=== PATIENT | male | born 1975 | race Caucasian/White ===

== ENCOUNTER 2019-10-25 12:29 | Inpatient (IN) | payer OTHER, SELFPAY ==
--- NOTE | ~2019-10-25 | XR_ITS ---
EXAMINATION: XR pelvis 1-2V, XR femur LT min 2V EXAM DATE: 10/25/2019 13:27 INDICATION: Fall, pelvic pain. Initial encounter. TECHNIQUE: Left femur frontal and lateral projections of the proximal aspect, frontal and lateral pro jections of the lower aspect for review. Frontal projection pelvis. FINDINGS: There is acute left intertrochanteric fracture with about 12 mm displacement, mild lacing string cutter ior medial angulation. Closed, posttraumatic fracture . No other femoral or pelvic fractures. IMPRESSION: Acute left hip intertrochanteric fracture, mild angulation and distraction. Reviewed, dictated and finalized at location A. ULAR TECHNICIAN IMPRESSION: Acute left hip intertrochanteric fracture, mild angulation and dis traction.
--- NOTE | ~2019-10-25 | XR_ITS ---
EXAMINATION: XR chest 1V portable DATE: 10/25/2019 19:45 INDICATION: Fracture for preoperative evaluation with leukocytosis. TECHNIQUE: frontal view of the chest was obtained. COMPARISON: Chest radiograph dated 09/29/2006 FINDINGS: The lungs remain clear with no focal airspace opacities, pulmonary edema, pleural effusion or pneumot horax. The cardiomediastinal silhouette is normal. Visualized bones and soft tissues are unremarkable . IMPRESSION: 1. Normal chest radiograph. Reviewed, dictated and finalized at location A. GE CARPENTER IMPRESSION: 1. Normal chest radiograph.
--- NOTE | ~2019-10-25 | CT_ITS ---
EXAMINATION: CT pelvis wo con DATE: 10/28/2019 08:47 INDICATION: Pelvic pain. Left hip fracture. TECHNIQUE: Computed tomography (CT) of the pelvis was performed without intravenous contrast. Automat ed exposure control and iterative reconstruction technique were employed. The dose-length product was 441.55 mGy-cm. COMPARISON: CT abdomen and pelvis 04/14/2015, pelvis radiographs 10/25/2019, 10/26/2019 FINDINGS: There are no dilated loops of bowel. There are no pathologically enlarged lymph nodes. Ther e is no free intraperitoneal fluid. There is a comminuted intertrochanteric fracture of proximal left femur. The main distal fracture fragment demonstrates 2 mm lateral displacement and 5 mm distraction . Internal fixation is seen with antegrade intramedullary marilynn and femoral head/neck screw. There is m ild osteoarthritis of the hips. There is mild lumbar spondylosis. There is gas in the soft tissues, c onsistent with recent surgery. Lateral skin chalino are noted. There is hematoma in the subcutaneous fat lateral to the left hip. IMPRESSION: 1. Comminuted intertrochanteric fracture of proximal left femur with interval improvement in alignmen t status post open reduction internal fixation. 2. Mild osteoarthritis of the hips. Reviewed, dictated and finalized at location A. AGE WRAPPER IMPRESSION: 1. Comminuted intertrochanteric fracture of proximal left femur with interval i mprovement in alignment status post open reduction internal fixation. 2. Mild osteoarthritis of the hips.
--- NOTE | ~2019-10-25 | XR_ITS ---
EXAMINATION: XR surgery orthopedic DATE: 10/26/2019 10:04 INDICATION: Left femoral intertrochanteric nailing TECHNIQUE: 4 fluoroscopic spot images of the left hip and proximal femur were obtained during procedu re performed by Dr. Lazo. Radiologist was not present for the imaging or procedure. The amount of fluoroscopy time used during this procedure was 4.4 minutes. COMPARISON: 10/25/2019 FINDINGS: Interval antegrade intramedullary marilynn with distal interlocking and multiple neck dynamic compression screw fixation of an intratrochanteric fracture of the proximal left femur. Alignment appears near-an atomic. Normal alignment and joint space at the left hip. No other fractures identified. Expected sma ll amount of postoperative gas in the soft tissues. IMPRESSION: 1. Near-anatomic alignment post internal fixation of an intratrochanteric fracture of the proximal le ft femur. Reviewed, dictated and finalized at location A. AL ARTIST IMPRESSION: 1. Near-anatomic alignment post internal fixation of an intratrochanteric fract ure of the proximal left femur.
--- NOTE | ~2019-10-25 | XR_ITS ---
EXAMINATION: XR hip LT 2V w AP pelvis DATE: 10/29/2019 12:48 INDICATION: [place] pop at the left hip during therapy session TECHNIQUE: Anteroposterior view of the pelvis and anteroposterior and cross-table lateral views of th e left hip were obtained. COMPARISON: CT dated 10/28/2019 and fluoroscopic images dated 10/26/2019 FINDINGS: Again seen is a mildly comminuted intertrochanteric fracture at the proximal left femur with antegrad e intramedullary marilynn with dynamic hip screw and distal interlocking screw fixation. Alignment remains near-anatomic with unchanged 8 mm wide lucent fracture gap extending obliquely along the anterior as pect of the greater trochanter. No evident instrumentation failure or migration with no surrounding l ucency to suggest loosening. No new fractures identified. Bilateral hip and sacral iliac joint spaces are normal. Expected small amount of residual gas in the subcutaneous tissues underlying multiple sk in chalino. IMPRESSION: 1. Unchanged internally fixed comminuted intertrochanteric fracture of the proximal left femur which remains in near anatomic alignment. No new osseous abnormality. Reviewed, dictated and finalized at location A. SUPPORT CONSULTANT IMPRESSION: 1. Unchanged internally fixed comminuted intertrochanteric fracture of the prox imal left femur which remains in near anatomic alignment. No new osseous abnorm ality.
[2019-10-25 12:41] VITALS: BP 131/67; PULSE 63; RESP 14; TEMP 36.7; O2SAT 100
--- NOTE | 2019-10-25 12:44 | ED.LOWEXIN ---
HPI - Extremity Injury (Lower) General Chief Complaint: Extremity Injury, Lower Stated Complaint: FALL/L HIP PAIN Time Seen by Provider: 10/25/19 12:44 Source: patient and RN notes reviewed Mode of arrival: EMS Limitations: no limitations History of Present Illness HPI Narrative: A 44 y/o male presents to the ED via EMS with severe, throbbing, 10/10, lt hip pain beginning roughly 30 minutes ago after he had a ground level fall. He states that he was chasing his daughter outside of his mother's house, when he slipped on the asphalt and landed on his lt hip. He reports immediate, severe, lt hip pain and that he was unable to get up or bare weight on his own so he called EMS to be brought here. He denies any HI, LOC, BELLA, CP, SOB, neck pain, back pain, and any other medical complaints at this time. complaint: hip injury Onset (ago): minute(s) (30) Injury: Left: hip Type of Injury: blunt Place: other (mother's home) Severity: severe Severity scale (1-10): 10 Exacerbating factors: weight bearing and movement Context: fall Associated symptoms: unable to bear weight Other symptoms: none Related Data Home Medications Medication Instructions Recorded Confirmed No Home Medications 10/25/19 10/25/19 Allergies Allergy/AdvReac Type Severity Reaction Status Date / Time No Known Allergies Allergy Mild Unverified 10/21/15 10:51 Review of Systems Constitutional: Constitutional: Denies chills, Denies fever(s), Denies headache(s) and Denies weakness Eyes: Eyes: Denies blurry vision ENT: Denies headache(s) and Denies neck pain Cardiovascular: Cardiovascular: Denies chest pain and Denies dyspnea Respiratory: Respiratory: Denies cough and Denies dyspnea Gastrointestinal: Gastrointestinal: Denies abdominal pain, Denies diarrhea, Denies nausea and Denies vomiting Genitourinary: Genitourinary: Denies hematuria and Denies dysuria Musculoskeletal: Musculoskeletal: Denies back pain, Denies neck pain and Reports other (severe 10/10 lt hip pain) Neurologic: Denies headache(s), Denies weakness and Denies other (HI or LOC) [facility] Past Medical History Medical History (Updated 10/25/19 @ 16:29 by Briana Espinoza MD) Healthy female Surgical History Surgical History (Updated 10/25/19 @ 13:31 by Logan Garner) No history of previous surgery Social History Social History (Updated 10/25/19 @ 13:31 by Logan Garner) Smoking packs per day: 1 Smoking cigarettes per day: 20.0 Smoking status: Current every day smoker Gender identity (if verbalized by the patient): Male Comments PCP: REBECCA Banks. Exam Const: General: no acute distress and well developed Orientation/consciousness: oriented to person, oriented to place, oriented to time and patient oriented x3 HENMT: Head: normocephalic Ears: external ears normal General nose exam: Normal external nose present Eyes: General: appearance normal, both eyes and all related structures Conjunctivae: conjunctivae normal Neck: Neck: normal visual inspection and full ROM Chest: Chest palpation & inspection: normal inspection of the chest and no tenderness Resp: Effort & Inspection: normal respiratory effort Auscultation: clear to auscultation bilaterally Cardio: Rate: regular rate Rhythm: regular rhythm GI: GI Palp: No abdominal tenderness and Yes Soft to palpation Skin: General skin exam: normal color and turgor normal Neuro: General: oriented to person, oriented to place, oriented to time and patient oriented x3 Cognition (Neuro): normal cognition Extrem: General: no pedal edema Right upper extremity: full ROM Left upper extremity: full ROM Right lower extremity: full ROM Left lower extremity: hip/thigh Details: tenderness Location: of the proximal upper leg and swelling Location: of the proximal upper leg Psych: Appearance: grossly normal Mental Status: mental status grossly normal Affect: normal affect Course Consultations Consultation #1: Discussed case w
[2019-10-25 15:40] LABS: Basophils Percent Auto 0.3 % (0.2-1.2); Eosinophils Percent Auto 0.2 % (0-4.4); Hematocrit 42.6 % (42.0-52.0); Hemoglobin 14.2 g/dL (14.0-18.0); Immature Granulocyte Absolute 0.08 K/mm3 (0.00-0.031); Immature Granulocyte Percent A 0.6 % (0-0.5); Lymphocytes Absolute Auto 0.66 K/mm3 (0.9-3.2); Mean Corpuscular HGB Conc 33.3 g/dl (32-36); Mean Corpuscular Hemoglobin 31.6 pg (26-34); Mean Corpuscular Volume 94.7 fl (80-100); Mean Platelet Volume 8.7 fl (7.4-10.4); Monocytes Absolute Auto 0.7 K/mm3 (0.1-0.6); Monocytes Percent Auto 5.5 % (2.6-8.5); Neutrophils Absolute Auto 11.6 K/mm3 (1.3-6.7); Neutrophils Percent Auto 88.4 % (45.5-73.1); Platelet Count Result 311 k/mm3 (150-375); Red Cell Distribution Width 12.9 % (11.5-14.5); White Blood Count 13.1 K/mm3 (4.5-10.0)
[2019-10-25 15:46] LABS: INR 0.9; Prothrombin Time 12.3 Seconds (11.1-14.7)
[2019-10-25 15:47] LABS: Partial Thromboplastin Time 27.3 SECONDS (22.3-36.8)
[2019-10-25 15:52] VITALS: BP 118/69; PULSE 80; RESP 12; O2SAT 100
[2019-10-25 15:52] LABS: Blood Urea Nitrogen 15 mg/dL (9-20); Calcium 9.4 mg/dL (8.4-10.2); Carbon Dioxide 25 mmol/L (22-30); Chloride 100 mmol/L (98-107); Estimated CRCL calculation 117 ml/min; Estimated Glomerular Filt Rate > 60; Glucose 97 mg/dL (75-110); Potassium 4.4 mmol/L (3.4-5.0); Sodium 137 mmol/L (137-145)
[2019-10-25 16:20] VITALS: BP 100/44; PULSE 82; RESP 18; TEMP 36.9; O2SAT 100
[2019-10-25] MEDS: MORPHINE SULFATE 4 MG/ML INJ IV PUSH ×2 (16:33→21:09)
[2019-10-25 16:39] VITALS: BMI 24.9
--- NOTE | 2019-10-25 16:56 | ADMGEN ---
This patient, Val Cisneros, was admitted to [facility] Surg Room 312-01. Patient/family oriented to hospital policies and general routines including ID bracelet, bed and alarms, visiting hours, pain management, procedures, bathroom and other care routines, personal items, smoking policy, room service/diet, and visiting hours. Valuables list has been completed. Information on how to activate the Rapid Response Team has been discussed. Patient/Family are encouraged to report perceived risks to care and to ask questions if they do not understand what they are told or what they should do.
[2019-10-25] MEDS: DIAZEPAM 5 MG TABLET PO (18:17)
--- NOTE | 2019-10-25 18:45 | PM.IMHP ---
H&P: HPI History of Present Illness Chief complaint: Left hip pain after a fall. <Liz Summers PA-C - Last Filed: 10/25/19 19:14> Narrative: Val Cisneros is a 44 year old male reporting no significant medical history who presented to the emergency department earlier this afternoon via EMS from home for evaluation of left hip pain after fall. Just prior to arrival, he dove on the ground to catch his 1-1/2-year-old daughter who was running and appeared to be tripping. He was able to save his daughter from harm, however landed very hard on his left leg, with immediate excruciating pain in the left hip. He was unable to get himself up or bear weight on the left leg due to pain and he was found to have a left hip fracture. At the time my evaluation, he rates his pain 8/10 and has a hard time describing it other than severe pain. He had some mild tingling of the left toes but that has since improved. He denies current paresthesias, skin color, and temperature changes distal to the fracture site. Other than a skin tear on his left elbow, he sustained no other injuries. There was no head trauma or loss of consciousness. <Liz Summers PA-C - Last Filed: 10/25/19 19:14> Review of Systems Review of Systems: Narrative: Twelve systems were reviewed with pertinent positives and negatives as per HPI. No fever, chills, or sweats. He had a cold 2 weeks ago, all symptoms have resolved. No history of cardiac or pulmonary disease. No exertional chest pain or shortness of breath. He denies nausea and vomiting. No history of venous thromboembolism. Except as documented, all other systems were reviewed and are negative. <Liz Summers PA-C - Last Filed: 10/25/19 19:14> [facility] Past Medical History Medical History: Medical History H/O ETOH abuse History of drug abuse in remission History of smoking Leukocytosis Sciatica <Liz Summers PA-C - Last Filed: 10/25/19 19:14> Surgical History Surgical History: Surgical History No history of previous surgery <iLz Summers PA-C - Last Filed: 10/25/19 19:14> Family History Family History: Family History Grandparent Bone cancer Cerebrovascular accident <Liz Summers PA-C - Last Filed: 10/25/19 19:14> Social History Social History: Social History (Updated 10/25/19 @ 19:11 by Liz Summers PA-C) Social History: The patient lives in [place] with his girlfriend. He has 7 biologic children, and mainly is a [id number] father. He works part-time [employer]. He designates his significant other, Marva García, as his surrogate decision maker and he wishes to be a full code. He smoked about a pack of cigarettes per day for nearly 30 years and quit several years ago. He does use chewing tobacco on occasion. He drinks between 12 and 18 beers a week. Prior history of marijuana use, but no illicit drug use recently. Smoking packs per day: 1 Smoking cigarettes per day: 20.0 Years smoked: 30 Smoking pack-years: 30.00 Smoking status: Former smoker Tobacco type: cigarettes Smokeless tobacco user: chewing tobacco Second hand tobacco smoke exposure: Yes Smoking end date: 08/18/17 Alcohol intake: current Drinks per week: 12 Substance use: former Substance use type: marijuana Last use: as a teenager Gender identity (if verbalized by the patient): Male Spiritual care concerns: No Agree to blood products: Yes <Liz Summers PA-C - Last Filed: 10/25/19 19:14> Meds Home Medications and Allergies Home medications: Home Medications Medication Instructions Recorded Confirmed Type No Home Medications 10/25/19 10/25/19 History <Liz Summers PA-C - Last Filed: 10/25/19 19:14> Allergies/Adverse reactio
[2019-10-25] MEDS: CELECOXIB 200 MG CAPSULE PO (19:03)
[2019-10-25 20:00] VITALS: BP 115/72; PULSE 86
--- NOTE | 2019-10-25 20:04 | WPDANESEPP ---
Anes - Eval Pre Procedure Procedure: Left hip Gamma Nail Date/Time: 10/25/19 20:04 Surgeon: Lyly Preop Diagnosis: Closed displaced intertrochanteric fracture of left femur Pre Op Diagnosis: Left hip pain after a fall. Patient Data Age: 44 Gender: M Height: 6 ft 2 in Weight: 88 kg Last Vital Signs Temp 98.5 F 10/25/19 16:20 Pulse 82 10/25/19 16:20 Resp 18 10/25/19 16:20 BP 100/44 L 10/25/19 16:20 Pulse Ox 100 10/25/19 16:20 Allergies Allergy/AdvReac Type Severity Reaction Status Date / Time No Known Allergies Allergy Mild Unverified 10/21/15 10:51 Home Medications Medication Instructions Recorded Confirmed Type No Home Medications 10/25/19 10/25/19 History Laboratory Tests 10/25/19 10/25/19 10/25/19 15:25 15:25 15:25 WBC 13.1 K/mm3 H K/mm3 (4.5-10.0) RBC 4.50 M/mm3 L M/mm3 (4.6-6.20) Hgb 14.2 g/dL g/dL (14.0-18.0) Hct 42.6 % % (42.0-52.0) MCV 94.7 fl fl (80-100) MCH 31.6 pg pg (26-34) MCHC 33.3 g/dl g/dl (32-36) RDW 12.9 % % (11.5-14.5) Plt Count 311 k/mm3 k/mm3 (150-375) MPV 8.7 fl fl (7.4-10.4) Immature Gran % (Auto) 0.6 % H % (0-0.5) Neut % (Auto) 88.4 % H % (45.5-73.1) Lymph % (Auto) 5.0 % L % (18.3-44.2) [place]y % (Auto) 5.5 % % (2.6-8.5) Eos % (Auto) 0.2 % % (0-4.4) Baso % (Auto) 0.3 % % (0.2-1.2) Lymph # (Auto) 0.66 K/mm3 L K/mm3 (0.9-3.2) [place]y # (Auto) 0.7 K/mm3 H K/mm3 (0.1-0.6) Eos # (Auto) 0.0 K/mm3 K/mm3 (0-0.3) Baso # (Auto) 0.0 K/mm3 K/mm3 (0.0-0.1) Abs Immat Gran (auto) 0.08 K/mm3 H K/mm3 (0.00-0.031) Absolute Neuts (auto) 11.6 K/mm3 H K/mm3 (1.3-6.7) Absolute Nucleated RBC 0.0 K/mm3 K/mm3 (0.0-0.012) Nucleated RBC % 0.0 % % (0.0-0.2) PT 12.3 Seconds Seconds (11.1-14.7) INR 0.9 APTT 27.3 SECONDS SECONDS (22.3-36.8) Sodium 137 mmol/L mmol/L (137-145) Potassium 4.4 mmol/L mmol/L (3.4-5.0) Chloride 100 mmol/L mmol/L (98-107) Carbon Dioxide 25 mmol/L mmol/L (22-30) BUN 15 mg/dL mg/dL (9-20) Creatinine 0.80 mg/dL mg/dL (0.7-1.3) Estim Creat Clear Calc 117 ml/min ml/min Estimated GFR > 60 (59 - ) Glucose 97 mg/dL mg/dL (75-110) Calcium 9.4 mg/dL mg/dL (8.4-10.2) Patient hx anesthesia problems: none Family hx anesthesia problems: none [facility] Past Medical History Medical History H/O ETOH abuse History of drug abuse in remission History of smoking Leukocytosis Sciatica Surgical History Surgical History No history of previous surgery Family History Family History Grandparent Bone cancer Cerebrovascular accident Social History Social History (Updated 10/25/19 @ 19:11 by Liz Summers PA-C) Social History: The patient lives in [place] with his girlfriend. He has 7 biologic children, and mainly is a [id number] father. He works part-time [employer]. He designates his significant other, Marva García, as his surrogate decision maker and he wishes to be a full code. He smoked about a pack of cigarettes per day for nearly 30 years and quit several years ago. He does use chewing tobacco on occasion. He drinks between 12 and 18 beers a week. Prior history of marijuana use, but no illicit drug use recently. Smoking packs per day: 1 Smoking cigarettes per day: 20.0 Years smoked: 30 Smoking pack-years: 30.00 Smoking status: Former smoker Tobacco type: cigarettes Smokeless tobacco user: chewing tobacco Second hand tobacco smoke exposure: Yes
[2019-10-25 22:00] VITALS: BP 115/72; PULSE 88; RESP 16; TEMP 37.1; O2SAT 99
[2019-10-26] VITALS (15 sets, daily range): BP systolic 117–146; BP diastolic 64–85; PULSE 63–86; RESP 15–19; TEMP 36.3–37.3; O2SAT 92–100
[2019-10-26] MEDS: MORPHINE SULFATE 4 MG/ML INJ IV PUSH ×2 (03:35→05:38)
[2019-10-26 06:48] LABS: Alanine Aminotransferase 21 U/L (4-50); Albumin Level 3.8 g/dL (3.5-5.1); Alkaline Phosphatase 74 U/L (38-126); Aspartate Amino Transferase 22 U/L (17-59); Bilirubin,Total 0.5 mg/dL (0.2-1.3); Blood Urea Nitrogen 14 mg/dL (9-20); Calcium 8.8 mg/dL (8.4-10.2); Carbon Dioxide 25 mmol/L (22-30); Chloride 100 mmol/L (98-107); Estimated CRCL calculation 132 ml/min; Estimated Glomerular Filt Rate > 60; Glucose 101 mg/dL (75-110); Sodium 135 mmol/L (137-145)
--- NOTE | 2019-10-26 07:50 | P.PNAN_ITS ---
Anes - Eval Final PreProcedure Day of Procedure 10/26/19 07:50 Patient weight: normal Heart: regular rate and rhythm Lungs: clear to auscultation and normal air movement Airway: Mallampati scale class II Neurological: alert and oriented Last oral intake: >/= 8 hours ASA classification: III Emergent: no Anesthetic plan: proceed Anesthesia type and monitoring: general LMA Informed Consent: The patient's anesthetic plan and its attendant risks and b enefits were discussed with the patient/family/POA. Questions were solicited and answers provided to the satisfaction of the patient/family/POA.
--- NOTE | 2019-10-26 08:13 | PC.NURSE ---
Pt to surgery per bed. IV 18 LAC saline locked.
[2019-10-26] MEDS: ceFAZolin 2 GM/D5W 50 ML 2 GM/50 ML BAG IVPB ×2 (08:46→17:20)
--- NOTE | 2019-10-26 10:14 | PM.OP ---
Procedure Note - Brief Procedure Note - Brief Date of procedure: 10/26/19 Pre-op diagnosis: Left hip pain after a fall. LEFT IT FRACTURE Post-op diagnosis: same Procedure performed: LEFT HIP GAMMA KERRIE INSERTION Anesthesia: GETA Surgeon: Jean Lzao MD Estimated blood loss (mL): 200 Complications: No immediate complications Condition: stable Disposition: PACU
--- NOTE | 2019-10-26 11:18 | PM.PROC ---
Procedure Note - Detailed Date of procedure: 10/26/19 Pre-op diagnosis: Left hip pain after a fall. LEFT HIP INTERTROCHANTERIC FEMUR FRACTURE Post-op diagnosis: same Procedure performed: INSERTION IM KERRIE LEFT HIP Description of procedure: THE LEFT LOWER EXTREMITY WAS PREPPED AND DRAPED AFTER CLOSED REDUCTION ON FRACTURE TABLE. INCISION WAS MADE OVER THE PROXIMAL GREATER TROCHNATERIC REGION. A GUIDE PIN WAS PLACED THROUGH THE GREATER TROCH AND IN TO THE FEMORAL SHAFT. I REAMER WAS USED OVER THE GUIDE PIN. A [employer] GAMMA KERRIE WAS PLACED OVER THE GUIDE PIN. A LAG SCREW WAS PLACED THROUGH THE FEMORAL NECK JUST SHY TO THE SUBCHONDRAL BONE. A LOCKING SCREW WAS PLACED IN THE DIDTAL KERRIE LOCKKING IT TO THE BONE. THE FRACTURE AND HARDWARE WERE IN GOOD POSITION. THE WOUNDS WERE CLOSED IN LAYERS WITH 1 AND 2-0 VICRYL THEN GEORGIE FOR THE SKIN. DRESSSING WAS APPLIED. PATIENT WAS SENT TO REC ROOM IN STABLE CONDITION Anesthesia: GETA Surgeon: Jean Lazo MD Estimated blood loss (mL): 200 Drains: No Packing: No Pathology: none sent Complications: No immediate complications Condition: stable Disposition: PACU
--- NOTE | 2019-10-26 11:47 | PC.NURSE ---
Pt returned from post op @ 8161.
--- NOTE | 2019-10-26 11:58 | SUR.PHASEI ---
1125; UNABLE TO CHART IVF IN NOV. PT HAD 100ML OF LACTATED RINGERS LEFT TO COUNT WHEN IV WAS SALINE LOCKED. TOTAL OF 1900ML OF LR IN SURGERY TODAY. IVAN LORA ON [employer]/SURG NOTIFIED.
[2019-10-26] MEDS: KCL 20 MEQ/D5/0.45% SOD CHL 1,000 ML 80 ML IV CONT (12:09)
--- NOTE | 2019-10-26 12:11 | CONS_ITS ---
DATE OF CONSULTATION: 10/26/2019 HISTORY OF PRESENT ILLNESS: This is a 44-year-old male who fell while trying to catch his daughter, injuring his left hip. He came to the emergency department at [facility] and was diagnosed with an intertrochanteric femur fracture of the left femur. He denies any other pain in other extremities. Denies any neck pain, back pain, or any other lower extremity pain aside from the left hip. Denies any loss of consciousness. PAST MEDICAL HISTORY: Sciatica. MEDICATIONS: None. ALLERGIES: NONE. SURGICAL HISTORY: None. SOCIAL HISTORY: Smokes one-pack of cigarettes per day. He also chews tobacco. Takes alcohol approximately 12 drinks per week. Uses marijuana. REVIEW OF SYSTEMS: Denies any chest pain, shortness of breath, any headache, back ache, diarrhea, nausea, or vomiting. Complains only of left hip pain. PHYSICAL EXAMINATION: The left hip was examined. He has some swelling to the left thigh. He has tenderness over the proximal femur. He has severe pain with passive internal and external rotation of left hip. He has no thigh masses. The knee is nontender with no swelling. There is no effusion. Tib-fib, foot and ankle are nontender. No sign of trauma. He is able to dorsi and plantar flex the left foot with 5/5 strength. Dorsalis pedis pulse 2+, posterior tib pulse 2+. The right hip was examined. He has no pain with passive motion. He has no tenderness to the thigh. He has no thigh masses. The knee is nontender. He has full range of motion of the knee and no instability. He has no tenderness in tib-fib, foot, and ankles. He is able to dorsi and plantar flex the right foot without any difficulty. He has dorsalis pedis pulse 2+, posterior tib pulse 2+. Upper extremity examination, he elevates both upper extremities without any difficulty. He has no tenderness in the clavicle, shoulders, arms, elbows, forearms, wrists and hands. The neck is nontender. Thoracic spine and lumbar spine are nontender. Sacroiliac region is nontender. Coccyx is nontender. IMAGING: X-ray evaluation shows left intertrochanteric femur fracture. RECOMMENDATION: Recommendations are for insertion of left hip gamma marilynn. I discussed the complications with him and his mother and we discussed infection. We discussed nonunion or malunion. We also discussed DVT and PE. He realized he will be on anticoagulation for 4 weeks. He will be on an altered weightbearing regimen for at least 6 weeks depending on fracture fixation and stability. He also realizes that due to possibility of infection, he may have to undergo further surgery such as irrigation and debridement and removal of hardware. He understands this and would like to proceed. CHANO PEÑA M.D. TANK PUMPER TANK PUMPER D Brandon MT: Syed
[2019-10-26] MEDS: THIAMINE HCL 100 MG TABLET PO (12:12)
[2019-10-26] MEDS: FOLIC ACID 1 MG TABLET PO (12:12)
--- NOTE | 2019-10-26 13:31 | OP_ITS ---
DATE OF PROCEDURE: 10/26/2019 PREOPERATIVE DIAGNOSIS: Left intertrochanteric femur fracture. POSTOPERATIVE DIAGNOSIS: Left intertrochanteric femur fracture. PROCEDURE: Insertion of intramedullary hip marilynn, left femur. ANESTHESIA: None. COMPLICATIONS: None. INDICATIONS: This is a 44-year-old male, who fell and injuring his right hip. He had pain and swelling. He went to the emergency department, was diagnosed with a left intertrochanteric femur fracture. He was admitted to the hospital. Orthopedics was consulted. He was indicated for insertion of hip marilynn, left hip. DESCRIPTION OF PROCEDURE: The patient was taken to the operating room in stable condition and placed in supine position. General anesthesia induced and then he was placed on the fracture table, and with gentle traction and internal rotation, the intertrochanteric femur fracture reduced to near-anatomic position. Once that was performed, then the left lower extremity was prepped and draped sterilely from the toes to the iliac crest. Incision was made just proximal to the greater trochanter down to the subcutaneous tissues and down through the fascia. The tip of the greater trochanter was identified. A guide pin under fluoroscopy was placed through the greater trochanter and then passed the fracture fragments in the proximal femoral shaft. This was checked on the AP and lateral films. Next, starter reamer was placed and the reamer was placed for the guide pin and the proximal femur was reamed. Next, a short gamma marilynn by [employer] measuring 130 degrees by 11 x 180 degrees length was inserted into the femoral shaft. This was done under direct fluoroscopy visualization, was found to be in good position. A guide pin was placed through the marilynn and into the femoral neck just shy of the subchondral bone of the femoral head. This was reamed to 105, and then 105 lag screw was placed until there was an excellent bite just shy of the subchondral bone. Once that was performed, a distal locking screw was placed. This was also done under fluoroscopy and was found to be in good position. X-rays were taken and found the fracture fragments of the hardware were in good position. The wounds were washed copiously and then the fascial layers were approximated with #1 Vicryl, subcutaneous tissue with 2-0 Vicryl and the skin was approximated with chalino. Wound was washed, placed sterile dressing. The patient was then taken off the fracture table. He was extubated and sent to recovery. D I MT: Syed
--- NOTE | 2019-10-26 14:20 | PM.IMPN ---
Progress Note: A&P Assessment and Plan (1) Closed displaced intertrochanteric fracture of left femur: Qualifiers: Encounter type: initial encounter Qualified Code(s): S72.142A - Displaced intertrochanteric fracture of left femur, initial encounter for closed fracture Code(s): S72.142A - Displaced intertrochanteric fracture of left femur, initial encounter for closed fracture Status: Acute Assessment and Plan: The pt presented to [facility] via EMS due to a ground level fall when he slipped trying to catch his daughter. There was no LOC. There was no head trauma. He has no other c/o pain with the exception of his hip. X-ray evaluation in the ED revealed closed, displaced intertrochanteric fracture of the left femur occurred. He was admitted to the hospitalist service. He is s/p left intramedullary hip rosa elena insertion by Dr. Lazo this morning. Motor and sensation are intact to the left foot. He has 2+ DP and PT pulses bilaterally. His foot is warm with good color. 2 Left hip dressings are c/d/i. There is some soft-tissue swelling at the lateral aspect of the hip suspicious for hematoma. I discussed this finding with Dr. Lazo. His diet was advanced post-op and he is tolerating PO intake well. Urinary pattern is normal. No flatus or BM yet. -Analgesics per orthopedic surgery -Stressed the importance of Q2HR IS to prevent post-op pneumonia -Neurovascular checks, call Dr. Lazo with acute change -Wound care per Dr. Lazo -Ancef IV pre- and post-op per Dr. Lazo -Activity and PT/OT per Dr. Lazo (2) Leukocytosis: Code(s): D72.829 - Elevated white blood cell count, unspecified Status: Acute Assessment and Plan: Labs at initial presentation to the ED revealed mild leukocytosis with left shift with white blood cell count of 13.1 with 88.4% neurophils, 0.6% immaure granulocytes, and 5% lymphocytes. There is no hx to suggest infection. I suspect that leukocytosis is likely due to an acute stress reaction. -Repeat CBC tomorrow -Consider further work-up for lymphopenia outpatient if it persists after resolution of acute stress reaction. (3) H/O ETOH abuse: Code(s): F10.11 - Alcohol abuse, in remission Status: Acute Assessment and Plan: The pt admits to 12-18 beers per week. So far, CIWA score is 0. -Perform CIWA-Ar Q4 while awake for 72 hr -Pt is on PRN diazepam for spasms per ortho. -Will add chlordiazepoxide 25mg q 6HR PRN CIWA score >10 -Folic acid and thiamine dietary supplements Subjective Date/time seen: 10/26/19 14:20 Interval history: Mr. Cisneros was seen and examined at bedside s/p left intramedullary hip rosa elena insertion by Dr. Lazo this morning due to left closed, displaced intertrochanteric femur fracture. The fracture resulted from a ground level fall when he was trying to catch his granddaughter from falling. He reports that is pain is controlled on his current regimen. He does c/o soft tissue swelling at the operative site that is tender to touch. His dressings are c/d/i. Motor function and sensation are intact to the left toes. He just finished lunch and denies nause, vomiting, and bloating. He reports no flauts yet. He reports regular urinary pattern. He has a superficial skin tear on his left arm from the fall without surrounding erythema or swelling. Review of Systems Review of Systems: All systems reviewed & are unremarkable except as noted in HPI and below Constitutional: Constitutional: Denies chills, Denies fatigue, Denies fever(s), Denies poor appetite and Denies weakness Eyes: Eyes: Denies change in vision ENT: Reports Normal hearing present Cardiovascular: Cardiovascular: Denies chest pain, Denies rapid heart rate and Denies dyspnea Respiratory: Respiratory: Denies cough, Denies dyspnea and Denies wheezing Gastrointestinal: Gastrointestinal: Denies abdominal pain, Denies bloating, Denies constipation, Den
[2019-10-26] MEDS: CELECOXIB 200 MG CAPSULE PO (17:19)
[2019-10-26] MEDS: MORPHINE SULFATE 4 MG/ML INJ 3 MG IV PUSH (17:19)
[2019-10-26] MEDS: DIAZEPAM 5 MG TABLET PO (19:50)
[2019-10-27] VITALS (7 sets, daily range): BP systolic 105–125; BP diastolic 52–72; PULSE 62–80; RESP 16–18; TEMP 36.6–36.8; O2SAT 97–100
[2019-10-27] MEDS: ceFAZolin 2 GM/D5W 50 ML 2 GM/50 ML BAG IVPB ×2 (01:06→09:56)
[2019-10-27] MEDS: DIAZEPAM 5 MG TABLET PO ×2 (06:14→20:17)
[2019-10-27 06:32] LABS: Basophils Percent Auto 0.1 % (0.2-1.2); Eosinophils Absolute Auto 0.1 K/mm3 (0-0.3); Eosinophils Percent Auto 1.2 % (0-4.4); Hematocrit 33.4 % (42.0-52.0); Hemoglobin 10.9 g/dL (14.0-18.0); Immature Granulocyte Absolute 0.03 K/mm3 (0.00-0.031); Immature Granulocyte Percent A 0.4 % (0-0.5); Lymphocytes Absolute Auto 1.23 K/mm3 (0.9-3.2); Lymphocytes Percent Auto 17.9 % (18.3-44.2); Mean Corpuscular HGB Conc 32.6 g/dl (32-36); Mean Corpuscular Hemoglobin 31.1 pg (26-34); Mean Corpuscular Volume 95.4 fl (80-100); Mean Platelet Volume 9.2 fl (7.4-10.4); Monocytes Percent Auto 15.1 % (2.6-8.5); Neutrophils Absolute Auto 4.5 K/mm3 (1.3-6.7); Neutrophils Percent Auto 65.3 % (45.5-73.1); Platelet Count Result 254 k/mm3 (150-375); White Blood Count 6.9 K/mm3 (4.5-10.0)
[2019-10-27 06:48] LABS: Blood Urea Nitrogen 10 mg/dL (9-20); Calcium 8.6 mg/dL (8.4-10.2); Carbon Dioxide 26 mmol/L (22-30); Chloride 100 mmol/L (98-107); Estimated CRCL calculation 152 ml/min; Estimated Glomerular Filt Rate > 60; Glucose 110 mg/dL (75-110); Potassium 3.7 mmol/L (3.4-5.0); Sodium 136 mmol/L (137-145)
[2019-10-27] MEDS: FOLIC ACID 1 MG TABLET PO (10:00)
[2019-10-27] MEDS: CELECOXIB 200 MG CAPSULE PO (10:00)
[2019-10-27] MEDS: THIAMINE HCL 100 MG TABLET PO (10:00)
[2019-10-27] MEDS: ASPIRIN 325 MG ENTERIC TABLET 650 MG PO (10:00)
--- NOTE | 2019-10-27 13:29 | PM.PNORT ---
Progress Note: A&P Additional Plan POD 1 DOING WELL. CONT PT Time Spent With Patient Time with patient: 15 - 25 minutes Subjective Subjective Date/Time Seen: 10/27/19 13:29POD 1 DOING WELL. PAIN CONTROLLED. 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 SIGN CALF SOFT NON TENDER Objective Data Vital Signs Vital Signs: Vital Signs - 24 hr 10/26/19 16:20 10/26/19 17:10 10/26/19 20:00 Temperature 36.7 C Pulse Rate 66 Pulse Rate [Right Radial Palpation] 72 Respiratory Rate 19 Blood Pressure 136/71 132/75 Pulse Oximetry 92 100 10/26/19 21:43 10/27/19 00:00 10/27/19 02:06 Temperature 37.3 C 36.7 C Pulse Rate 86 62 Pulse Rate [Right Radial Palpation] 72 Respiratory Rate 16 16 Blood Pressure 132/75 105/52 L Pulse Oximetry 98 97 10/27/19 04:00 10/27/19 06:00 10/27/19 10:00 Temperature 36.7 C 36.8 C Pulse Rate 69 80 Pulse Rate [Right Radial Palpation] 74 Respiratory Rate 18 18 Blood Pressure 125/72 117/66 Pulse Oximetry 98 100 Intake/Output Intake/Output: Intake & Output 10/24/19 10/25/19 10/26/19 10/27/19 23:59 23:59 23:59 23:59 Intake Total 300 2320 680 Output Total 0 2525 250 Balance 300 -205 430 Meds/Results Medications: Active Medications Generic Name Dose Route Start Last Admin Trade Name Freq PRN Reason Stop Dose Admin Acetaminophen 650 mg 10/26/19 10:15 Tylenol Tablet PO Q6H PRN Mild Pain (1-3) or Fever Hydrocodone Bitart/Acetaminophen 1 tab 10/26/19 10:15 10/27/19 07:26 [place] 7.5-325 Mg PO 1 tab Q3H PRN Administration Pain Rated 4-6 Aspirin 650 mg 10/27/19 09:00 10/27/19 10:00 Aspirin Ec PO 650 mg DAILY [facility] Administration Celecoxib 200 mg 10/27/19 08:00 10/27/19 10:00 Celebrex PO 200 mg DAILY@0800 [facility] Administration Chlordiazepoxide HCl 25 mg 10/26/19 17:28 Librium Po PO Q6H PRN CIWA> 10 Diazepam 5 mg 10/25/19 17:23 10/26/19 19:50 Valium Po PO 5 mg BID PRN Administration Anxiety Diazepam 5 mg 10/26/19 10:20 10/27/19 06:14 Valium Po PO 5 mg Q8H PRN Administration Muscle Spasm Fentanyl Citrate 25 mcg 10/26/19 07:51 10/26/19 11:07 Sublimaze IV PUSH 25 mcg Q2M PRN Administration Pain Folic Acid 1 mg 10/26/19 09:00 10/27/19 10:00 Folic Acid PO 1 mg DAILY [facility] Administration Hydromorphone HCl 0.25 mg 10/26/19 07:51 Dilaudid Inj IV PUSH Q5M PRN Pain Ibuprofen 800 mg in 200 mls @ 400 mls/hr 10/26/19 10:15 Caldolor 800 Mg/200 Ml IVPB Q6H PRN Pain Rated 4-6 Morphine Sulfate 3 mg 10/26/19 10:15 10/26/19 17:19 Morphine Sulfate Inj IV PUSH 3 mg Q3H PRN Administration Pain Rated 7-10 Naloxone HCl 0.1 mg 10/26/19 10:15 Narcan IV PUSH Q2M PRN Opiate Reversal Ondansetron HCl 4 mg 10/26/19 07:51 Zofran Inj IV PUSH ONCE PRN Nausea Ondansetron HCl 4 mg 10/26/19 10:15 Zofran Inj IV PUSH Q4H PRN Nausea And Vomiting Oxycodone/Acetaminophen 2 tablet 10/26/19 10:15 10/27/19 10:56 Percocet 5-325 Mg PO 2 tablet Q4H PRN Administration Breakthrough Pain Thiamine HCl 100 mg 10/26/19 09:00 10/27/19 10:00 Vitamin B-1 PO 100 mg QAM [facility] Administration Radiology Results: ITS Impressions Femur X-Ray 10/25/19 13:40 IMPRESSION: Acute left hip intertrochanteric fracture, mild angulation and distraction. Pelvis X-Ray 10/25/19 13:40 IMPRESSION: Acute left hip intertrochanteric fracture, mild angulation and distraction. Chest X-Ray 10/25/19 21:48 IMPRESSION: 1. Normal chest radiograph. Intraoperative X-Ray 10/26/19 15:39 IMPRESSION: 1. Near-anatomic alignment post internal fixation of an intratrochanteric fracture of the proximal left femur. Labs Labs: Laboratory Results - last 24 hr 10/27/19 10/27/19 05:50 05:50 WBC 6.9 RBC
--- NOTE | 2019-10-27 14:13 | WPDANESPN ---
Anes - Prog Note Post-Op Date/Time: 10/27/19 14:13 Cardiovascular status: normal Respiratory status: normal Airway patency: baseline Mental status: baseline Post-Op hydration status: normal Vital Signs: Last Vital Signs Temp 98.3 F 10/27/19 10:00 Pulse 80 10/27/19 10:00 Resp 18 10/27/19 10:00 BP 117/66 10/27/19 10:00 Pulse Ox 100 10/27/19 10:00 I/O: Intake & Output 10/26/19 10/27/19 10/27/19 23:59 07:59 15:59 Intake Total 970 630 50 Output Total 950 250 Balance 20 380 50 Laboratory Tests 10/27/19 05:50 10/27/19 05:50 10/27/19 10/27/19 05:50 05:50 WBC 6.9 RBC 3.50 L Hgb 10.9 L D Hct 33.4 L MCV 95.4 MCH 31.1 MCHC 32.6 RDW 13.0 Plt Count 254 MPV 9.2 Immature Gran % (Auto) 0.4 Neut % (Auto) 65.3 Lymph % (Auto) 17.9 L [place] % (Auto) 15.1 H Eos % (Auto) 1.2 Baso % (Auto) 0.1 L Lymph # (Auto) 1.23 [place] # (Auto) 1.0 H Eos # (Auto) 0.1 Baso # (Auto) 0.0 Abs Immat Gran (auto) 0.03 Absolute Neuts (auto) 4.5 Absolute Nucleated RBC 0.0 Nucleated RBC % 0.0 Sodium 136 L Potassium 3.7 Chloride 100 Carbon Dioxide 26 BUN 10 Creatinine 0.60 L Estim Creat Clear Calc 152 Estimated GFR > 60 Glucose 110 Calcium 8.6 Post-procedural complaints: none Patient Feedback: Patient satisfied with anesthetic care.
--- NOTE | 2019-10-27 16:29 | PM.IMPN ---
Progress Note: A&P Assessment and Plan (1) Closed displaced intertrochanteric fracture of left femur: Qualifiers: Encounter type: initial encounter Qualified Code(s): S72.142A - Displaced intertrochanteric fracture of left femur, initial encounter for closed fracture <Genesis Beasley PA-C - Last Filed: 10/27/19 17:23> Code(s): S72.142A - Displaced intertrochanteric fracture of left femur, initial encounter for closed fracture <Genesis Beasley PA-C - Last Filed: 10/27/19 17:23> Status: Acute <Genesis Beasley PA-C - Last Filed: 10/27/19 17:23> Assessment and Plan: The pt presented to [facility] via EMS due to a ground level fall when he slipped trying to catch his daughter. There was no LOC. There was no head trauma. X-ray evaluation in the ED revealed closed, displaced intertrochanteric fracture of the left femur occurred. He was admitted to the hospitalist service. He is s/p left intramedullary hip rosa elena insertion by Dr. Lazo yesterday. Motor and sensation are intact to the left foot. He has 2+ DP and PT pulses bilaterally. His foot is warm with good color. 2 Left hip dressings are c/d/i. He has soft swelling at the left hip. He is passing flatus and tolerating PO intake well. He complains of significant left hip pain when he raises the right leg. -Will perform pelvic CT to r/o occult pelvic fracture -Analgesics per orthopedic surgery -Stressed the importance of Q2HR IS to prevent post-op pneumonia -Neurovascular checks, call Dr. Lazo with acute change -Wound care per Dr. Lazo -Ancef IV pre- and post-op per Dr. Lazo -Activity and PT/OT per Dr. Lazo <Genesis Beasley PA-C - Last Filed: 10/27/19 17:23> (2) Leukocytosis: Code(s): D72.829 - Elevated white blood cell count, unspecified <Genesis Beasley PA-C - Last Filed: 10/27/19 17:23> Status: Acute <NOMAN Angelo Last Filed: 10/27/19 17:23> Assessment and Plan: Labs at initial presentation to the ED revealed mild leukocytosis with left shift with white blood cell count of 13.1 with 88.4% neurophils, 0.6% immaure granulocytes, and 5% lymphocytes. There is no hx to suggest infection. Repeat CBC today reveals WBC 6.9. Neutrophils are no longer elevated and he has lymphocytosis, likely due to stress reaction from surgery. -Repeat CBC tomorrow <Genesis Beasley PA-C - Last Filed: 10/27/19 17:23> (3) H/O ETOH abuse: Code(s): F10.11 - Alcohol abuse, in remission <NOMAN Angelo Last Filed: 10/27/19 17:23> Status: Acute <NOMAN Angelo Last Filed: 10/27/19 17:23> Assessment and Plan: The pt admits to 12-18 beers per week. CIWA scores are 0 today. -Perform CIWA-Ar Q4 while awake for 72 hr -Pt is on PRN diazepam for spasms per ortho. -Will add chlordiazepoxide 25mg q 6HR PRN CIWA score >10 -Folic acid and thiamine dietary supplements <NOMAN Angelo Last Filed: 10/27/19 17:23> Subjective Date/time seen: 10/27/19 16:29 <NOMAN Angelo Last Filed: 10/27/19 17:23> Interval history: Mr. Cisneros is seen and examined while he ambulating with PT. He continues to c/o left hip pain as well as left hip pain with the right leg raised approximately 20 degrees. While ambulating, he keeps the right leg internally rotated. He is tolerating PO intake well. He reports flatus. He denies chest pain, calf pain, SOB, and cough. He reports that he is using IS. He denies fever and chills. He denies nausea and vomiting. He reports sensation to his left foot seems to be improving. <NOMAN Angelo Last Filed: 10/27/19 17:23> Review of Systems Review of Systems: All systems reviewed & are unremarkable except as noted in HPI and below <Genesis Beasley PA-C - Last Filed: 10/27/19 17:23> Exam Const: General: cooperative, healthy appearing, comfo
[2019-10-28] VITALS: BP 103/59; PULSE 76
[2019-10-28 02:00] VITALS: BP 103/59; PULSE 66; RESP 18; TEMP 36.4; O2SAT 99
[2019-10-28 04:00] VITALS: BP 103/59; PULSE 76
[2019-10-28 06:00] VITALS: BP 108/57; PULSE 71; RESP 18; TEMP 36.8; O2SAT 99
[2019-10-28 06:18] LABS: Basophils Percent Auto 0.4 % (0.2-1.2); Eosinophils Absolute Auto 0.2 K/mm3 (0-0.3); Eosinophils Percent Auto 2.2 % (0-4.4); Hemoglobin 11.2 g/dL (14.0-18.0); Immature Granulocyte Absolute 0.05 K/mm3 (0.00-0.031); Immature Granulocyte Percent A 0.7 % (0-0.5); Lymphocytes Absolute Auto 1.44 K/mm3 (0.9-3.2); Lymphocytes Percent Auto 21.5 % (18.3-44.2); Mean Corpuscular HGB Conc 32.9 g/dl (32-36); Mean Corpuscular Hemoglobin 31.5 pg (26-34); Mean Corpuscular Volume 95.8 fl (80-100); Mean Platelet Volume 8.8 fl (7.4-10.4); Monocytes Absolute Auto 0.9 K/mm3 (0.1-0.6); Monocytes Percent Auto 13.1 % (2.6-8.5); Neutrophils Absolute Auto 4.2 K/mm3 (1.3-6.7); Neutrophils Percent Auto 62.1 % (45.5-73.1); Platelet Count Result 264 k/mm3 (150-375); Red Blood Count 3.55 M/mm3 (4.6-6.20); Red Cell Distribution Width 12.9 % (11.5-14.5); White Blood Count 6.7 K/mm3 (4.5-10.0)
[2019-10-28] MEDS: THIAMINE HCL 100 MG TABLET PO (08:01)
[2019-10-28] MEDS: CELECOXIB 200 MG CAPSULE PO (08:02)
[2019-10-28] MEDS: FOLIC ACID 1 MG TABLET PO (08:02)
[2019-10-28] MEDS: ASPIRIN 325 MG ENTERIC TABLET 650 MG PO (08:02)
[2019-10-28] MEDS: DIAZEPAM 5 MG TABLET PO (08:05)
[2019-10-28 15:03] VITALS: BP 134/64; PULSE 90; RESP 18; TEMP 36.4; O2SAT 100
--- NOTE | 2019-10-28 18:48 | PM.IMPN ---
Progress Note: A&P Assessment and Plan (1) Closed displaced intertrochanteric fracture of left femur: Qualifiers: Encounter type: initial encounter Qualified Code(s): S72.142A - Displaced intertrochanteric fracture of left femur, initial encounter for closed fracture Code(s): S72.142A - Displaced intertrochanteric fracture of left femur, initial encounter for closed fracture Status: Acute Assessment and Plan: The pt had a ground level fall when he slipped trying to catch his daughter resulting in a left closed, displaced IT femur fracture. He is s/p left intramedullary hip marilynn insertion by Dr. Lazo 10/26/19. Still having pelvic pain so Pelvic CT ordered but did not reveal any other fractures. Continue PT/OT. Possibly home tomorrow. (2) Leukocytosis: Code(s): D72.829 - Elevated white blood cell count, unspecified Status: Acute Assessment and Plan: WBC 13.1 on admission felt realted to the stress. Repeat WBC normal (3) H/O ETOH abuse: Code(s): F10.11 - Alcohol abuse, in remission Status: Acute Assessment and Plan: The pt admits to 12-18 beers per week. No evidence of withdrawal symptoms. Continue Folic acid and thiamine dietary supplements. Diazepam available for spasm and Librium for withdrawal sx. Subjective Date/time seen: 10/28/19 18:48 Interval history: 44yo male here for left femur fracture s/p repair 10/26/19. He has been up walking in the room with therapy. Having increasing pain. No CP or SOB. No n/v. Fels dizzy at times. Therapy states patient having dificult with ambulation and felt not a safe discharge today. Exam Narrative: Exam Narrative: Gen - NARD Chest - CTA bilat, nml RR CV - RRR S1/S2 Abd - soft, NT/ND, +BS Ext - left hip dressing clean, dry and intact, 2+ DP bilaterally Neuro - normal senation to the left foot Psych - nml mood and affect Objective Data Vital Signs Vital Signs: Vital Signs - 24 hr 10/27/19 20:00 10/27/19 22:00 10/28/19 00:00 Temperature 97.8 F Pulse Rate 66 78 Pulse Rate [Right Radial Palpation] 76 76 Respiratory Rate 18 18 Blood Pressure 106/66 120/56 L 103/59 L Pulse Oximetry 99 99 10/28/19 02:00 10/28/19 04:00 10/28/19 06:00 Temperature 97.6 F 98.3 F Pulse Rate 66 71 Pulse Rate [Right Radial Palpation] 76 Respiratory Rate 18 18 Blood Pressure 103/59 L 103/59 L 108/57 L Pulse Oximetry 99 99 10/28/19 15:03 Temperature 97.5 F L Pulse Rate 90 Pulse Rate [Right Radial Palpation] Respiratory Rate 18 Blood Pressure 134/64 Pulse Oximetry 100 Intake/Output Intake/Output: Intake & Output 10/25/19 10/26/19 10/27/19 10/28/19 23:59 23:59 23:59 23:59 Intake Total 300 2320 1100 1970 Output Total 0 2525 1901 1525 Balance 938 -065 -711 588 Meds/Results Medications: Active Medications Generic Name Dose Route Start Last Admin Trade Name Freq PRN Reason Stop Dose Admin Acetaminophen 650 mg 10/26/19 10:15 Tylenol Tablet PO Q6H PRN Mild Pain (1-3) or Fever Hydrocodone Bitart/Acetaminophen 1 tab 10/26/19 10:15 10/28/19 18:29 [place] 7.5-325 Mg PO 1 tab Q3H PRN Administration Pain Rated 4-6 Aspirin 650 mg 10/27/19 09:00 10/28/19 08:02 Aspirin Ec PO 650 mg DAILY [facility] Administration Celecoxib 200 mg 10/27/19 08:00 10/28/19 08:02 Celebrex PO 200 mg DAILY@0800 [facility] Administration Chlordiazepoxide HCl 25 mg 10/26/19 17:28 Librium Po PO Q6H PRN CIWA> 10 Diazepam 5 mg 10/25/19 17:23 10/27/19 20:17 Valium Po PO 5 mg BID PRN Administration Anxiety Diazepam 5 mg 10/26/19 10:20 10/28/19 08:05 Valium Po PO 5 mg Q8H PRN Administration Muscle Spasm Fentanyl Citrate 25 mcg 10/26/19 07:51 10/26/19 11:07 Sublimaze IV PUSH 25 mcg Q2M PRN Administration Pain Folic Acid 1 mg 10/26/19 09:00 10/28/19 08:02 Folic Acid PO 1 mg DAILY [facility] Adm
[2019-10-28 22:00] VITALS: BP 131/62; PULSE 73; RESP 16; TEMP 36.9; O2SAT 100
[2019-10-29 06:00] VITALS: BP 103/53; PULSE 66; RESP 18; TEMP 36.8; O2SAT 96
[2019-10-29] MEDS: ASPIRIN 325 MG ENTERIC TABLET 650 MG PO (08:56)
[2019-10-29] MEDS: THIAMINE HCL 100 MG TABLET PO (08:56)
[2019-10-29] MEDS: FOLIC ACID 1 MG TABLET PO (08:56)
[2019-10-29] MEDS: CELECOXIB 200 MG CAPSULE PO (08:56)
--- NOTE | 2019-10-29 12:18 | PC.NURSE ---
No return call from Dr Violet Hopper I contacted office and Dr Lazo stated that he had received the message left earlier by Norma Mosquera that patient felt left hip pop during therapy session. Orders received.
[2019-10-29 14:00] VITALS: BP 124/70; PULSE 90; RESP 16; TEMP 36.9; O2SAT 97
--- NOTE | 2019-10-29 14:30 | PM.IMPN ---
Progress Note: A&P Assessment and Plan (1) Closed displaced intertrochanteric fracture of left femur: Qualifiers: Encounter type: initial encounter Qualified Code(s): S72.142A - Displaced intertrochanteric fracture of left femur, initial encounter for closed fracture Code(s): S72.142A - Displaced intertrochanteric fracture of left femur, initial encounter for closed fracture Status: Acute Assessment and Plan: Result of a ground level fall. Imaging with comminuted intertrochanteric fracture of proximal left femur. Orthopedics consulted and appreciate help. Now S/P repair by Dr. Lazo on 10/26/2019. [place] pop with therapy today with repeat imaging showing no change. Continue PT/OT. Patient did speak with billing customer service representative from SNF today. Patient preference is to go home. He now does have arrangements in place for appropriate help with his care at home. Anticipate discharge tomorrow. (2) Leukocytosis: Qualifiers: Leukocytosis type: unspecified Qualified Code(s): D72.829 - Elevated white blood cell count, unspecified Code(s): D72.829 - Elevated white blood cell count, unspecified Status: Acute Assessment and Plan: Holden to be reactive. WBC now normal at 6.7 on last check. (3) H/O ETOH abuse: Code(s): F10.11 - Alcohol abuse, in remission Status: Acute Assessment and Plan: He admits to 12-18 beers per week. Currently stable. no evidence of withdrawal symptoms. Continue Folic acid and thiamine dietary supplements. Librium available as needed but has not used to date. Will monitor. (4) DVT prophylaxis: Code(s): Z29.9 - Encounter for prophylactic measures, unspecified Status: Acute Assessment and Plan: SCDs. Time Spent With Patient Time with patient: 15 - 25 minutes Subjective Date/time seen: 10/29/19 14:30 Interval history: Date of Service: 10/29/2019. Admitted with left femur fracture. Patient reports pain controlled left leg. No chest pain or shortness of breath. No abdominal pain. No headache or dizziness. Review of Systems Constitutional: Constitutional: Denies chills and Denies fever(s) ENT: Denies nasal congestion and Denies nasal discharge Cardiovascular: Cardiovascular: Denies chest pain Respiratory: Respiratory: Denies dyspnea Gastrointestinal: Gastrointestinal: Denies abdominal pain, Denies nausea and Denies vomiting Genitourinary: Genitourinary: Reports no additional male genitourinary complaints Musculoskeletal: Comments: Pain left leg/hip tolerable Integumentary/Breasts: Skin/Breast: Denies rash Neurologic: Denies headache(s) and Denies numbness Psychiatric: Psychiatric: Denies anxiety, Denies confusion and Denies depression Exam Narrative: Exam Narrative: Awake and alert. Const: General: no acute distress HENMT: Mouth: Yes moist mucous membranes Neck: Neck: supple Lymphatic: lymphadenopathy not noted Resp: Auscultation: clear to auscultation bilaterally, no rales and no wheezes Cardio: Rate: regular rate Rhythm: regular rhythm GI: Inspection: non-distended GI Palp: Yes Soft to palpation and No Tenderness to palpation present (GI) Auscultation: normal bowel sounds Skin: General skin exam: no erythema Neuro: Cognition (Neuro): normal cognition Speech: normal speech Extrem: General: no edema Left lower extremity: hip/thigh (Surgical bandage in place with no surrounding erythema or drainage) Psych: Mental Status: mental status grossly normal Affect: normal affect Objective Data Vital Signs Vital Signs: Vital Signs - 24 hr 10/28/19 15:03 10/28/19 22:00 10/29/19 06:00 Temperature 97.5 F L 98.4 F 98.3 F Pulse Rate 90 73 66 Respiratory Rate 18 16 18 Blood Pressure 134/64 131/62 103/53 L Pulse Oximetry 100 100 96 Intake/Output Intake/Output: Intake & Output 10/26/19 10/27/19 10/28/19 10/29/19 23:59 23:59 23:59 23:59 Intake Total 2320 1100 1970 1320
--- NOTE | 2019-10-29 15:57 | PM.PNORT ---
Progress Note: A&P Additional Plan POD 3 IMPROVING. CONTINUE PT. HE SHOULD BE DISCHARGED SOON. LIKE MAYBE [facility] Time Spent With Patient Time with patient: 15 - 25 minutes Subjective Subjective Date/Time Seen: 10/29/19 15POD 3 DOING WELL. PAIN CONTROL IS DIFFICULT FOR HIM. HE HAD NEW XRAYS WHICH SHOWED NO CHANGE IN FRACTURE. 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 SIGN Objective Data Vital Signs Vital Signs: Vital Signs - 24 hr 10/28/19 22:00 10/29/19 06:00 Temperature 36.9 C 36.8 C Pulse Rate 73 66 Respiratory Rate 16 18 Blood Pressure 131/62 103/53 L Pulse Oximetry 100 96 Intake/Output Intake/Output: Intake & Output 10/26/19 10/27/19 10/28/19 10/29/19 23:59 23:59 23:59 23:59 Intake Total 2320 1100 1970 1320 Output Total 2525 1901 1525 1500 Balance -205 801 445 -180 Meds/Results Medications: Active Medications Generic Name Dose Route Start Last Admin Trade Name Freq PRN Reason Stop Dose Admin Acetaminophen 650 mg 10/26/19 10:15 Tylenol Tablet PO Q6H PRN Mild Pain (1-3) or Fever Hydrocodone Bitart/Acetaminophen 1 tab 10/26/19 10:15 10/29/19 08:57 [place] 7.5-325 Mg PO 1 tab Q3H PRN Administration Pain Rated 4-6 Aspirin 650 mg 10/27/19 09:00 10/29/19 08:56 Aspirin Ec PO 650 mg DAILY HECTOR Administration Celecoxib 200 mg 10/27/19 08:00 10/29/19 08:56 Celebrex PO 200 mg DAILY@0800 HECTOR Administration Chlordiazepoxide HCl 25 mg 10/26/19 17:28 Librium Po PO Q6H PRN CIWA> 10 Diazepam 5 mg 10/25/19 17:23 10/27/19 20:17 Valium Po PO 5 mg BID PRN Administration Anxiety Diazepam 5 mg 10/26/19 10:20 10/28/19 08:05 Valium Po PO 5 mg Q8H PRN Administration Muscle Spasm Fentanyl Citrate 25 mcg 10/26/19 07:51 10/26/19 11:07 Sublimaze IV PUSH 25 mcg Q2M PRN Administration Pain Folic Acid 1 mg 02/08/20 09:00 10/29/19 08:56 Folic Acid PO 1 mg DAILY HECTOR Administration Hydromorphone HCl 0.25 mg 10/26/19 07:51 Dilaudid Inj IV PUSH Q5M PRN Pain Ibuprofen 800 mg in 200 mls @ 400 mls/hr 10/26/19 10:15 Caldolor 800 Mg/200 Ml IVPB Q6H PRN Pain Rated 4-6 Morphine Sulfate 3 mg 10/26/19 10:15 10/26/19 17:19 Morphine Sulfate Inj IV PUSH 3 mg Q3H PRN Administration Pain Rated 7-10 Naloxone HCl 0.1 mg 10/26/19 10:15 Narcan IV PUSH Q2M PRN Opiate Reversal Ondansetron HCl 4 mg 10/26/19 07:51 Zofran Inj IV PUSH ONCE PRN Nausea Ondansetron HCl 4 mg 10/26/19 10:15 Zofran Inj IV PUSH Q4H PRN Nausea And Vomiting Oxycodone/Acetaminophen 2 tablet 10/26/19 10:15 10/28/19 04:31 Percocet 5-325 Mg PO 2 tablet Q4H PRN Administration Breakthrough Pain Thiamine HCl 100 mg 10/26/19 09:00 10/29/19 08:56 Vitamin B-1 PO 100 mg QAM HECTOR Administration Radiology Results: ITS Impressions Femur X-Ray 10/25/19 13:40 IMPRESSION: Acute left hip intertrochanteric fracture, mild angulation and distraction. Pelvis X-Ray 10/25/19 13:40 IMPRESSION: Acute left hip intertrochanteric fracture, mild angulation and distraction. Chest X-Ray 10/25/19 21:48 IMPRESSION: 1. Normal chest radiograph. Intraoperative X-Ray 10/26/19 15:39 IMPRESSION: 1. Near-anatomic alignment post internal fixation of an intratrochanteric fracture of the proximal left femur. Pelvis CT 10/28/19 09:00 IMPRESSION: 1. Comminuted intertrochanteric fracture of proximal left femur with interval improvement in alignment status post open reduction internal fixation. 2. Mild osteoarthritis of the hips. Hip/Pelvis X-Ray 10/29/19 12:51 IMPRESSION: 1. Unchanged internally fixed comminuted intertrochanteric fracture of the proximal left femur which remains in near anatomic alignment. No new osseous abnormality. Quality VTE Proph
[2019-10-29] MEDS: DIAZEPAM 5 MG TABLET PO (21:28)
[2019-10-29 22:00] VITALS: BP 123/62; PULSE 86; RESP 18; TEMP 36.8; O2SAT 99
[2019-10-30 06:00] VITALS: BP 106/51; PULSE 67; RESP 16; TEMP 36.6; O2SAT 98
[2019-10-30] MEDS: THIAMINE HCL 100 MG TABLET PO (09:29)
[2019-10-30] MEDS: ASPIRIN 325 MG ENTERIC TABLET 650 MG PO (09:29)
[2019-10-30] MEDS: FOLIC ACID 1 MG TABLET PO (09:29)
[2019-10-30] MEDS: CELECOXIB 200 MG CAPSULE PO (09:29)
--- NOTE | 2019-10-30 10:29 | PM.IMPN ---
Progress Note: A&P Assessment and Plan (1) Closed displaced intertrochanteric fracture of left femur: Qualifiers: Encounter type: initial encounter Qualified Code(s): S72.142A - Displaced intertrochanteric fracture of left femur, initial encounter for closed fracture Code(s): S72.142A - Displaced intertrochanteric fracture of left femur, initial encounter for closed fracture Status: Acute Assessment and Plan: Result of a ground level fall. Imaging with comminuted intertrochanteric fracture of proximal left femur. Orthopedics consulted and appreciate help. Now S/P repair by Dr. Lazo on 10/26/2019. [place] pop with therapy yesterday with repeat imaging showing no change. POD # 4. Postoperative management including pain management per Orthopedics. Continue PT/OT. Does not wish to go to SNF at this time. Cannot set up home health as patient will not be seeing a new primary physician until November 04, 2019. Will discharge home today as other arrangements have been made to help ensure his safety. Reinforce with patient need to discuss order for possible PT/OT once he does see his new primary physician next week. (2) Leukocytosis: Qualifiers: Leukocytosis type: unspecified Qualified Code(s): D72.829 - Elevated white blood cell count, unspecified Code(s): D72.829 - Elevated white blood cell count, unspecified Status: Acute Assessment and Plan: Reactive. WBC now normal at 6.7 on last check. (3) H/O ETOH abuse: Code(s): F10.11 - Alcohol abuse, in remission Status: Acute Assessment and Plan: He admits to 12-18 beers per week. Remains stable. No evidence of withdrawal symptoms. Continue Folic acid and thiamine dietary supplements. Librium available as needed but has not used to date. Will continue to monitor while here. (4) DVT prophylaxis: Code(s): Z29.9 - Encounter for prophylactic measures, unspecified Status: Acute Assessment and Plan: SCDs. Time Spent With Patient Time with patient: 15 - 25 minutes Subjective Date/time seen: 10/30/19 10:29 Interval history: Date of Service: 10/30/2019. Admitted with left femur fracture. Just finished with walking short distance at home with therapy. Pain remains controlled left leg. No chest pain. No shortness of breath. No headache or dizziness. Wants to go home today. Review of Systems Constitutional: Constitutional: Denies chills and Denies fever(s) ENT: Denies nasal congestion and Denies nasal discharge Cardiovascular: Cardiovascular: Denies chest pain Respiratory: Respiratory: Denies dyspnea Gastrointestinal: Gastrointestinal: Denies abdominal pain, Denies nausea and Denies vomiting Genitourinary: Genitourinary: Reports no additional male genitourinary complaints Musculoskeletal: Musculoskeletal: Reports arthralgias (left hip controlled) and Denies numbness Integumentary/Breasts: Skin/Breast: Denies rash Neurologic: Denies headache(s) and Denies numbness Psychiatric: Psychiatric: Denies anxiety, Denies confusion and Denies depression Exam Narrative: Exam Narrative: Awake and alert. Const: General: no acute distress HENMT: Mouth: Yes moist mucous membranes Neck: Neck: supple Lymphatic: lymphadenopathy not noted Resp: Auscultation: clear to auscultation bilaterally, no rales and no wheezes Cardio: Rate: regular rate Rhythm: regular rhythm GI: Inspection: non-distended Auscultation: normal bowel sounds Skin: General skin exam: no erythema Neuro: General: No confusion Cognition (Neuro): normal cognition Speech: normal speech Extrem: General: no edema Left lower extremity: hip/thigh (Surgical bandage in place with no surrounding erythema or drainage) Psych: Mental Status: mental status grossly normal Affect: normal affect Objective Data Vital Signs Vital Signs: Vital Signs - 24 hr 10/29/19 14:00 10/29/19 22:00 10/30/19 06:00
[2019-10-30 14:00] VITALS: BP 122/64; PULSE 82; RESP 16; TEMP 36.8; O2SAT 100
--- NOTE | 2019-10-30 15:22 | PM.PNORT ---
Progress Note: A&P Additional Plan POD 4 DOING WELL. OK TO DC HOME. F/U IN 6 WEEKS. Time Spent With Patient Time with patient: less than 15 minutes Subjective Subjective Date/Time Seen: 10/30/19 15:22 POD 4 IMPROVING. DOING WELL IN PT. NO CALF PAIN Post Op day: 4 Exam Extrem: Other: VSS AFEBRILE DRESSING DRY NV INTACT NEG HOMANS SIGN CALF SOFT NONTENDER Objective Data Vital Signs Vital Signs: Vital Signs - 24 hr 10/29/19 22:00 10/30/19 06:00 Temperature 36.8 C 36.6 C Pulse Rate 86 67 Respiratory Rate 18 16 Blood Pressure 123/62 106/51 L Pulse Oximetry 99 98 Intake/Output Intake/Output: Intake & Output 10/27/19 10/28/19 10/29/19 10/30/19 23:59 23:59 23:59 23:59 Intake Total 1100 1970 2160 250 Output Total 1901 1525 1500 500 Balance -801 445 660 -250 Meds/Results Medications: Active Medications Generic Name Dose Route Start Last Admin Trade Name Freq PRN Reason Stop Dose Admin Acetaminophen 650 mg 10/26/19 10:15 Tylenol Tablet PO Q6H PRN Mild Pain (1-3) or Fever Hydrocodone Bitart/Acetaminophen 1 tab 10/26/19 10:15 10/30/19 07:55 [place] 7.5-325 Mg PO 1 tab Q3H PRN Administration Pain Rated 4-6 Aspirin 650 mg 10/27/19 09:00 10/30/19 09:29 Aspirin Ec PO 650 mg DAILY HECTOR Administration Celecoxib 200 mg 10/27/19 08:00 10/30/19 09:29 Celebrex PO 200 mg DAILY@0800 HECTOR Administration Chlordiazepoxide HCl 25 mg 10/26/19 17:28 Librium Po PO Q6H PRN CIWA> 10 Diazepam 5 mg 10/25/19 17:23 10/29/19 21:28 Valium Po PO 5 mg BID PRN Administration Anxiety Diazepam 5 mg 10/26/19 10:20 10/28/19 08:05 Valium Po PO 5 mg Q8H PRN Administration Muscle Spasm Fentanyl Citrate 25 mcg 10/26/19 07:51 10/26/19 11:07 Sublimaze IV PUSH 25 mcg Q2M PRN Administration Pain Folic Acid 1 mg 10/26/19 09:00 10/30/19 09:29 Folic Acid PO 1 mg DAILY HECTOR Administration Hydromorphone HCl 0.25 mg 10/26/19 07:51 Dilaudid Inj IV PUSH Q5M PRN Pain Ibuprofen 800 mg in 200 mls @ 400 mls/hr 10/26/19 10:15 Caldolor 800 Mg/200 Ml IVPB Q6H PRN Pain Rated 4-6 Morphine Sulfate 3 mg 10/26/19 10:15 10/26/19 17:19 Morphine Sulfate Inj IV PUSH 3 mg Q3H PRN Administration Pain Rated 7-10 Naloxone HCl 0.1 mg 10/26/19 10:15 Narcan IV PUSH Q2M PRN Opiate Reversal Ondansetron HCl 4 mg 10/26/19 07:51 Zofran Inj IV PUSH ONCE PRN Nausea Ondansetron HCl 4 mg 10/26/19 10:15 Zofran Inj IV PUSH Q4H PRN Nausea And Vomiting Oxycodone/Acetaminophen 2 tablet 10/26/19 10:15 10/30/19 04:30 Percocet 5-325 Mg PO 2 tablet Q4H PRN Administration Breakthrough Pain Thiamine HCl 100 mg 10/26/19 09:00 10/30/19 09:29 Vitamin B-1 PO 100 mg QAM HECTOR Administration Radiology Results: ITS Impressions Femur X-Ray 10/25/19 13:40 IMPRESSION: Acute left hip intertrochanteric fracture, mild angulation and distraction. Pelvis X-Ray 10/25/19 13:40 IMPRESSION: Acute left hip intertrochanteric fracture, mild angulation and distraction. Chest X-Ray 10/25/19 21:48 IMPRESSION: 1. Normal chest radiograph. Intraoperative X-Ray 10/26/19 15:39 IMPRESSION: 1. Near-anatomic alignment post internal fixation of an intratrochanteric fracture of the proximal left femur. Pelvis CT 10/28/19 09:00 IMPRESSION: 1. Comminuted intertrochanteric fracture of proximal left femur with interval improvement in alignment status post open reduction internal fixation. 2. Mild osteoarthritis of the hips. Hip/Pelvis X-Ray 10/29/19 12:51 IMPRESSION: 1. Unchanged internally fixed comminuted intertrochanteric fracture of the proximal left femur which remains in near anatomic alignment. No new osseous abnormality. Quality VTE Prophylaxis VTE prophylaxis: mechanical ordered (Unaffected limb
--- NOTE | 2019-10-30 20:35 | PM.DS ---
DS: Diagnosis Admitting Diagnosis Admitting Diagnosis: Displaced intertrochanteric fracture of left femur, initial encounter for closed fracture Discharge Diagnosis (1) Closed displaced intertrochanteric fracture of left femur: Qualifiers: Encounter type: initial encounter Qualified Code(s): S72.142A - Displaced intertrochanteric fracture of left femur, initial encounter for closed fracture Code(s): S72.142A - Displaced intertrochanteric fracture of left femur, initial encounter for closed fracture Status: Acute (2) Leukocytosis: Qualifiers: Leukocytosis type: unspecified Qualified Code(s): D72.829 - Elevated white blood cell count, unspecified Code(s): D72.829 - Elevated white blood cell count, unspecified Status: Acute (3) H/O ETOH abuse: Code(s): F10.11 - Alcohol abuse, in remission Status: Acute DS: Summary Hospital Course Reason for hospitalization: Left hip pain after fall. Hospital Course: Date of Service of Discharge: October 30, 2019. History of Present Illness: Patient is a 44-year-old gentleman with no significant past medical history who presented emergency room by EMS for evaluation of left hip pain after a fall. Just prior to arrival, he reports he dove on the ground to catch is 1-1/2-year-old daughter who was running and appear to be tripping. He was able to save his daughter from harm but landed very hard on his left leg. He immediately noted excruciating pain in the left hip. He was unable to get himself up or bear weight on the left leg. No chest pain or shortness of breath. No headache or dizziness. No recent fever, sweats or chills. In the emergency room, he was found to have acute left hip fracture. As result, he was admitted for further evaluation and treatment. Course in Hospital: Patient was placed on the medical/surgical floor on admission where he remained for the duration of his stay. He was noted to have left hip fracture on imaging in the emergency room. Orthopedics was consulted for repair. Patient was taken to the operating room on 10/26/[address] Lazo with left hip gamma marilynn insertion to repair left hip fracture. Postoperatively, he did receive physical and occupational therapy. He was given oral celecoxib scheduled along with high-dose aspirin. Additionally, he had oral acetaminophen, oral [place] and oral Percocet available as needed for pain. Patient did make slow but steady improvement. Patient was wanting to go home but concern was raised regarding safety particularly as he does have a young daughter. He did speak with a packaging sales representative from local SNF in case of need of placement. Patient was able to make arrangements for help at home with multiple family members. With patient not yet seen his new primary care physician, he was not able to have arrangements made for home health. Patient continued to receive physical and occupational therapy. With the progress he made during his stay, he was felt safe to go home with the other arrangements for help having been secured. Patient was advised he should speak with his new primary physician at his appointment scheduled on Monday, November 04, 2019, regarding any further therapy needs. Initial WBC was noted to be elevated. No signs of infection. WBC quickly returned to normal and remained such. Elevated W BC was felt to be result of reaction to stress. Patient did also admit to drinking 12-18 beers per week during his stay. He was monitored with no evidence of withdrawal symptoms. He was given folic acid and thiamine orally. Librium was available as needed but not required. He had no other acute issues during his hospital stay. With the patient stable and all home arrangements completed, he was discharged home on October 30, 2019. Status at Discharge Cognitive/behavioral status at discharge: Stable. Functional status at discharge: uses cane/walker Overall status at discharge: tariq
== END 2019-10-30 18:50 | disposition home or self-care (01) | DRG 308 ==
LOC: ANHED 15:48 → ANH3MEDSUR 16:03
PROVIDERS: Orthopaedic Surgery; Physician Assistant; Admitting Provider Internal Medicine; Emergency Provider Emergency Medicine; Visit Provider Hospitalist
PROC: 0QS736Z Reposition Left Upper Femur with Intramedullary Internal Fixation Device, Percutaneous Approach (ICD-10-PCS; CPT 27245; principal; 2019-10-26 08:30)
DX: S72.142A Displaced intertrochanteric fracture of left femur, initial encounter for closed fracture (principal); W19.XXXA Unspecified fall, initial encounter; F17.220 Nicotine dependence, chewing tobacco, uncomplicated; D62 Acute posthemorrhagic anemia; F10.11 Alcohol abuse, in remission
CPT/HCPCS: 36415; 71045; 72170; 72192; 73502; 73521; 73552; 80048; 80053; 85025; 85610; 85730; 96374; 96375; 96376; 97110; 97116; 97161; 97165; 97530; 97535; 99285; A9270; C1713; G0378; G0379; J0690; J1100; J1170; J2250; J2270; J2370; J2405; J2704; J3010; J3480

== ENCOUNTER 2020-03-31 12:30 | Outpatient (RCR) | payer OTHER, SELFPAY ==
--- NOTE | 2020-01-03 11:34 | PTOPEVAL ---
PHYSICAL THERAPY EVALUATION AND PLAN OF CARE Thank you for referring Val Cisneros to [facility]. I recommend Val be seen 2x/week for 4 weeks in PT. Please review, sign, date and return this plan of care SOHAIL. I agree with and certify that the following plan of care is medically necessary. Referring Physician Date Attending Provider: Amaya Chavarria, PA Evaluation Diagnosis left hip ORIF Onset 10/2019 Cause fall Subjective Information Val is here today 2months Query Text:As Reported By Patient/ after left hip ORIF after a Family fall on ice. He used a walker for about 6 weeks. He is not using a walker today and he does have a limp. States that is is more due to strength deficit than due to pain. Reports there is more cramping happening over the last couple of days. He lives in an apartment and has to climb stairs to enter/exit home. He also have difficulty and pain bending down to a squat position. Prior Level of Function Activity Level (Last 3 Months) Hand Dominance Right Home Setting Home Type Apartment Environmental Barriers Railing, Ascend Left,Railing, Ascend Right,Stairs, Greater than 4 Pain Assessment Timing of Pain Assessment Timing of Pain Assessment Assessment Pain Scale Pain Scale Used Numeric (1 - 10) Self Report Pain Assessment Left Hip(s) Reported Pain Level 6 Pain Frequency Continuous Lowest Pain Intensity 3 Greatest Pain Intensity 7 Pain Aggravating Factors Stair Climbing,Walking,Weight Bearing/Standing Pain Score Pain Score 6: Self Report Lower Extremity Range of Motion Hip Range of Motion Left Hip Flexion Range of Motion - Active 84 Hip Flexion Range of Motion - Passive 90 Hip Extension Range of Motion - Active 10 Hip Abduction Range of Motion - Active 15 Lower Extremity Muscle Strength Testing Hip Strength Left Hip Flexion Strength 3- Fair - Hip Extension Strength 3 Fair Hip Abduction Strength 2+ Poor + Knee Strength Left Knee Flexion Strength 3+ Fair + Knee Extension Strength 3+ Fair + Muscle Length Testing Muscle Length Testing Left Hamstring Length -45 Query Text:(90 - 90 Position) Right Hamstring Length -35
--- NOTE | 2020-01-14 14:59 | PCPTNOTE ---
Patient called & cancelled scheduled appointment this date due to having other things to do.
--- NOTE | 2020-01-23 15:34 | PCPTNOTE ---
Patient called & cancelled scheduled appointment this date due to no transportation and no child specialist.
--- NOTE | 2020-01-30 15:13 | PTOPEVAL ---
PHYSICAL THERAPY PLAN OF CARE UPDATE AND PROGRESS REPORT Thank you for referring Val Cisneros to [facility]. I recommend Val continue PT 2x/week for 4 weeks. Please review, sign, date and return this plan of care SOHAIL. I agree with and certify that the following plan of care is medically necessary. Referring Physician Date Attending Provider: Amaya Chavarria, PA Re-evaluation Diagnosis left hip ORIF Onset 10/2019 Cause fall Subjective Information Val is 3months after left Query Text:As Reported By Patient/ hip ORIF after a fall on ice. Family He is currently using a [facility] and is working. He continues to wake at night due to pain, but it is improving. continues to have pain. Left Hip(s) Reported Pain Level 4 Pain Frequency Continuous Greatest Pain Intensity 6 Pain Aggravating Factors Stair Climbing,Walking,Weight Bearing/Standing Pain Score Pain Score 4: Self Report Lower Extremity Range of Motion Hip Range of Motion Left Hip Flexion Range of Motion - Active 95 Hip Extension Range of Motion - Active 10 Hip Abduction Range of Motion - Active 15 Lower Extremity Muscle Strength Testing Hip Strength Left Hip Flexion Strength 4- Good - Hip Extension Strength 3 Fair Hip Abduction Strength 3- Fair - Hip Medial Rotation Strength 3- Fair - Hip Lateral Rotation Strength 3 Fair Hip Strength Comments SLS [id number] on left with severe lateral trunk lean left Knee Strength Left Knee Flexion Strength 4- Good - Knee Extension Strength 4- Good - Harp Balance Assessment Sitting to Standing Independent w/out Hands Unsupported Stance Ability Safely- 2 minutes Sitting Unsupported, Feet on Floor Safely- 2 minutes Standing to Sitting Safely, Minimal Hand Use Transfer Ability Safely, Minimal Hand Use Unsupported Stance- Eyes Closed Safely, 10 seconds Unsupported Stance- Feet Together Independent, 1 minute Reaching Forward while Standing Confidently, 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
--- NOTE | 2020-02-07 11:27 | PCPTNOTE ---
Patient called & cancelled scheduled appointment this date due to daughter being ill.
--- NOTE | 2020-02-19 15:40 | PCPTNOTE ---
Patient did not show up for rescheduled appointment this date.
--- NOTE | 2020-03-02 15:49 | PTOPEVAL ---
PHYSICAL THERAPY PLAN OF CARE UPDATE AND PROGRESS REPORT Thank you for referring Val Cisneros to [facility]. I recommend Val follow-up with surgeon regarding pain in his hip. We will continue 1x/week for 4 weeks to maintain continuity of care. Please review, sign, date and return this plan of care SOHAIL. I agree with and certify that the following plan of care is medically necessary. Referring Physician Date Attending Provider: Amaya Chavarria, PA Progress Diagnosis left hip ORIF Onset 10/2019 Cause fall Subjective Information Val is 4months s/p left Query Text:As Reported By Patient/ hip ORIF following fracture. Family He reports today a lot of pain without particular cause. He reports that he feels alot of fluctuations in how he feels with some days having a minimal limp and other days the limp increasing again. Val also reports significant concern over what type of job or industry he will be able to work in in the future. Self Report Pain Assessment Left Hip(s) Reported Pain Level 6 Pain Description Aching,Sharp Pain Frequency Continuous Pain Aggravating Factors Stair Climbing,Walking,Weight Bearing/Standing Pain Score Pain Score 6: Self Report Lower Extremity Range of Motion Hip Range of Motion Left Hip Flexion Range of Motion - Active 95 Hip Extension Range of Motion - Active 10 Hip Abduction Range of Motion - Active 20 Hip Strength Left Hip Flexion Strength 4 Good Hip Extension Strength 3+ Fair + Hip Abduction Strength 3- Fair - Hip Medial Rotation Strength 3 Fair Hip Lateral Rotation Strength 3 Fair Knee Strength Left Knee Flexion Strength 4 Good Knee Extension Strength 4 Good Palpation patient is very tender to palpation across greater trochanter Balance Assessment Time Up Go (TUG) Timed Up and Go Test (TUG) (Seconds) 9 Assistive Devices None 5 Time Sit to Stand Time in Seconds 14.51 5 Time Sit to Stand Comments 01/30/2020: 12.66seconds Query Text:Normative Data: If Greater Than 15 Seconds, 74% Increase Risk for Recurrent Falls Gait Pattern Trendelenburg Gait Gait Pattern Observed Trunk Lateral Lean - Left Other Gait Observations left hip external rotation in
--- NOTE | 2020-03-24 09:06 | PCPTNOTE ---
Patient called & cancelled scheduled appointment this date due to having no ride and no pharmacist helper for daughter.
--- NOTE | 2020-04-03 08:06 | PCPTNOTE ---
This treatment is being continued on visit number [id number]. Please see documentation on both accounts to view progress. Completed interventions, outcomes, and problems have been marked as Inactive to facilitate the copying of the Care plan routine for recurring accounts.
== END 2020-04-02 23:59 | disposition home or self-care (01) ==
LOC: ANHPT 12:30
PROVIDERS: Visit Provider Physician Assistant
DX: S72.001D Fracture of unspecified part of neck of right femur, subsequent encounter for closed fracture with routine healing (principal)
CPT/HCPCS: 97110; 97140; 97161

== ENCOUNTER 2020-05-12 15:30 | Outpatient (RCR) | payer OTHER, SELFPAY ==
--- NOTE | 2020-04-03 08:11 | PCPTNOTE ---
The treatment documented on this account is a continuation of the treatment documented on visit number [id number]. Please see documentation on both accounts to view progress. The Plan of Care has been transitioned and updated within the new V#. I have addressed and agree with the discipline specific Problems, Interventions, and Goals for the current certification period. Completed interventions, outcomes, and problems have been marked as Inactive to facilitate the copying of the Care plan routine for recurring accounts.
--- NOTE | 2020-04-07 12:37 | PCPTNOTE ---
Patient called & cancelled scheduled appointment this date per patient request.
--- NOTE | 2020-04-13 13:30 | PTOPEVAL ---
PHYSICAL THERAPY PROGRESS REPORT AND PLAN OF CARE Thank you for referring Val Cisneros to [facility]. Val will continue PT 1x/week for 4 weeks. Please review, sign, date and return this plan of care SOHAIL. I agree with and certify that the following plan of care is medically necessary. Referring Physician Date Progress Problem Diagnosis left hip ORIF Onset 10/2019 Cause fall Subjective Information Val is 5months s/p left Query Text:As Reported By Patient/ hip ORIF following fracture. Family He continues to report pain in left hip that prevents normal mechanics. He is unable to rise off the floor yet. Continues to have to significant weakness throughout left hip. Self Report Pain Assessment Left Hip(s) Reported Pain Level 2 Pain Description Soreness Pain Score Pain Score 2: Self Report Additional Pain Score Comments yesterday woke up feeling like the whole hip was out and today is feeling the effects of that. Hip Strength Left Hip Flexion Strength 4+ Good + Hip Extension Strength 4- Good - Hip Abduction Strength 3 Fair Hip Strength Comments unable to perform single leg sit<>stand Knee Strength Left Knee Flexion Strength 5 Normal Knee Extension Strength 5 Normal Knee Strength Comments SLS L = 10 seconds with mild lateral left lean Muscle Length Testing Piriformis w/Hip Flexion >90 Degrees (L) Severe Tightness Left Hamstring Length -35 Right Hamstring Length -35 Palpation trigger points noted to glute max Gait Assessment Gait Pattern Assessment Gait Pattern Trendelenburg Gait Gait Pattern Observed Trunk Lateral Lean - Left Other Gait Observations very mild Trendelenburg PT Clinical Summary Val is a 44 yo male presenting to outpatient physical therapy 4months s/p left hip ORIF. He has participated in 3 months of PT at this time. He continues to demonstrate significant hip abduction strength deficit that impairs mechanics for sit <>standing, rising from floor,
--- NOTE | 2020-04-21 11:11 | PCPTNOTE ---
Patient did not show for appointment this date.
--- NOTE | 2020-04-28 10:46 | PCPTNOTE ---
Patient called & cancelled scheduled appointment this date. Rescheduled the appointment for tomorrow.
--- NOTE | 2020-05-01 12:52 | PCPTNOTE ---
pt called at 11:30 left message. [employer] Bard checked messages at 12 :40. pt cancelled due to sinus infection.
--- NOTE | 2020-05-05 08:35 | PCPTNOTE ---
Patient called & cancelled scheduled appointment this date due to being sick.
--- NOTE | 2020-05-14 10:38 | PCPTNOTE ---
Patient did not show up for scheduled appointment this date.
--- NOTE | 2020-05-20 13:51 | PCPTNOTE ---
Patient did not show up for scheduled appointment this date.
--- NOTE | 2020-06-10 15:20 | PCPTNOTE ---
PHYSICAL THERAPY DISCHARGE NOTE Attending Provider: Amaya Chavarria, PA Patient:Val Cisneros Date of :1975 Patient has not returned for any further treatments since 05/12/2020, therefore he will be discharged at this time. Patient?s initial visit was on 01/03/2020. The goals have been PARTIALLY MET. We were continuing to address significant left gluteus medius/hip abduction strength deficit and gait pattern. Thank you for referring this patient to [facility]. Please review, sign, date and return this discharge summary SOHAIL. I have been updated about the patient's current status and I agree with discharge from the above service at this time. Referring Physician Date
== END 2020-06-22 09:42 | disposition home or self-care (01) ==
LOC: ANHPT 15:30
PROVIDERS: Visit Provider Physician Assistant
DX: S72.001D Fracture of unspecified part of neck of right femur, subsequent encounter for closed fracture with routine healing (principal)
CPT/HCPCS: 97110

== ENCOUNTER 2021-01-14 14:01 | Outpatient (CLI) | payer OTHER, SELFPAY ==
--- NOTE | ~2021-01-14 | XR_ITS ---
EXAMINATION: XR sacrum coccyx min 2V DATE: 01/14/2021 14:40 INDICATION: Coccygeal pain with inability to sit TECHNIQUE: Frontal, angled frontal and lateral views of the sacrum and coccyx were obtained. COMPARISON: CT pelvis dated 10/28/2019 FINDINGS: Unchanged 3 mm retrolisthesis L5 on S1. Alignment is otherwise normal. Sacral arches are intact. Bila teral sacroiliac joint spaces are normal. Old healed intertrochanteric fracture of the proximal left femur with partially visualized antegrade intramedullary marilynn and femoral neck dynamic compression scr ew fixation. No other fractures identified. IMPRESSION: 1. Unremarkable sacrum and coccyx. No acute osseous abnormality. Reviewed, dictated and finalized at location A.
[2021-01-14 14:25] LABS: Basophils Percent Auto 0.8 % (0.2-1.2); Eosinophils Absolute Auto 0.1 K/mm3 (0-0.3); Eosinophils Percent Auto 1.9 % (0-4.4); Hematocrit 45.4 % (42.0-52.0); Hemoglobin 15.1 g/dL (14.0-18.0); Immature Granulocyte Absolute 0.04 K/mm3 (0.00-0.031); Immature Granulocyte Percent A 0.8 % (0-0.5); Lymphocytes Absolute Auto 1.16 K/mm3 (0.9-3.2); Lymphocytes Percent Auto 22.4 % (18.3-44.2); Mean Corpuscular HGB Conc 33.3 g/dl (32-36); Mean Corpuscular Hemoglobin 32.4 pg (26-34); Mean Corpuscular Volume 97.4 fl (80-100); Mean Platelet Volume 8.2 fl (7.4-10.4); Monocytes Absolute Auto 0.7 K/mm3 (0.1-0.6); Monocytes Percent Auto 13.7 % (2.6-8.5); Neutrophils Absolute Auto 3.1 K/mm3 (1.3-6.7); Neutrophils Percent Auto 60.4 % (45.5-73.1); Platelet Count Result 305 k/mm3 (150-375); Red Blood Count 4.66 M/mm3 (4.6-6.20); Red Cell Distribution Width 12.6 % (11.5-14.5); White Blood Count 5.2 K/mm3 (4.5-10.0)
[2021-01-14 14:36] LABS: Alanine Aminotransferase 92 U/L (4-50); Albumin Level 4.6 g/dL (3.5-5.1); Alkaline Phosphatase 86 U/L (38-126); Anion Gap 6 mmol/L (8-16); Aspartate Amino Transferase 70 U/L (17-59); Bilirubin,Total 0.5 mg/dL (0.2-1.3); Blood Urea Nitrogen 13 mg/dL (9-20); Calcium 9.6 mg/dL (8.4-10.2); Carbon Dioxide 27 mmol/L (22-30); Chloride 106 mmol/L (98-107); Cholesterol 188 mg/dL (0-200); Estimated Glomerular Filt Rate > 60; Glucose 100 mg/dL (75-110); HDL Direct 79 mg/dL; Potassium 4.7 mmol/L (3.4-5.0); Sodium 139 mmol/L (137-145); Triglycerides 92 mg/dL (<150)
[2021-01-14 14:47] LABS: LDL Cholesterol Direct 96 mg/dL
== END 2021-01-14 14:02 | disposition home or self-care (01) ==
LOC: ANHLAB 14:05
PROVIDERS: PCP Nurse Practitioner Family; Visit Provider Nurse Practitioner Family
DX: M53.3 Sacrococcygeal disorders, not elsewhere classified (principal); Z13.0 Encounter for screening for diseases of the blood and blood-forming organs and certain disorders involving the immune mechanism; Z13.1 Encounter for screening for diabetes mellitus; Z13.29 Encounter for screening for other suspected endocrine disorder; Z13.220 Encounter for screening for lipoid disorders
CPT/HCPCS: 36415; 72220; 80053; 80061; 84443; 85025